=== PATIENT | female | born 1980 | race Caucasian/White ===

== ENCOUNTER 2016-09-06 19:44 | Emergency (ER) | payer OTHER | END 2016-09-06 21:22 | disposition home or self-care (01) | LOC: FER 19:44 | DX: L25.9 Unspecified contact dermatitis, unspecified cause (principal); E11.9 Type 2 diabetes mellitus without complications; Z82.5 Family history of asthma and other chronic lower respiratory diseases; Z79.84 Long term (current) use of oral hypoglycemic drugs | CPT/HCPCS: J3301 ==